=== PATIENT | female | born 1975 | race Caucasian/White ===

== ENCOUNTER 2018-12-02 13:16 | Emergency (ER) | payer SELFPAY ==
[~2018-12-02] VITALS: Ht 167.6 cm; Wt 70.3 kg
[2018-12-02 13:22] VITALS: BP 156/85
[2018-12-02] MEDS: HYDROcodone/APAP 5/325MG 1 TAB TABLET PO ONE (14:45)
--- NOTE | 2018-12-02 15:01 | PHYS DOC ---
Past Medical History Past Medical History: Diabetes-Type I Past Surgical History: Oophorectomy Additional Past Surgical Histo: D&C, R ARM SURGERY, RIGHT HEEL Alcohol Use: None Drug Use: Methamphetamine Social History Narrative: PT STATES HX METH POSSIBLE CURRENT Adult General Chief Complaint Chief Complaint: SKIN PROBLEM HPI HPI Patient is a 43 year old female who presents with multiple different stages of healing sores between the size of a nickel to quarter size that have appeared all over her body for the last month. Some have healed over and others are scabbed over. Patient states she's been opening them herself. Patient states she's not sure she's been getting bitten by spiders. Patient states she has feels nauseated every now and then but it comes and goes. Patient states she also feels like her throat is sore. Patient states she's been taking ibuprofen but has not taken any since last night. Patient is afebrile. Patient states they burn and itch she rates them a 10 out 10. Review of Systems Review of Systems Constitutional: Denies fever or chills [] Eyes: Denies change in visual acuity, redness, or eye pain [] HENT: Denies nasal congestion or sore throat [] Respiratory: Denies cough or shortness of breath [] Cardiovascular: No additional information not addressed in HPI [] GI: Denies abdominal pain, nausea, vomiting, bloody stools or diarrhea [] : Denies dysuria or hematuria [] Musculoskeletal: Denies back pain or joint pain [] Integument: Wounds all over the body. Denies rash or skin lesions [] Neurologic: Denies headache, focal weakness or sensory changes [] Endocrine: Denies polyuria or polydipsia [] All other systems were reviewed and found to be within normal limits, except as documented in this note. Current Medications Current Medications Current Medications Medications (Trade) Dose Ordered Sig/Manasa Start Time Stop Time Status Last Admin Dose Admin Acetaminophen/ Hydrocodone Bitart (Lortab 5/325) 1 tab 1X ONCE 12/02/18 14:30 12/02/18 14:31 DC 12/02/18 14:45 1 TAB Allergies Allergies Allergies Coded Allergies Type Severity Reaction Last Updated Verified No Known Drug Allergies 12/02/18 No Physical Exam Physical Exam Constitutional: Well developed, well nourished, no acute distress, non-toxic appearance. [] HENT: Normocephalic, atraumatic, bilateral external ears normal, oropharynx moist, no oral exudates, nose normal. [] Eyes: PERRLA, EOMI, conjunctiva normal, no discharge. [] Neck: Normal range of motion, no tenderness, supple, no stridor. [] Cardiovascular:Heart rate regular rhythm, no murmur [] Lungs & Thorax: Bilateral breath sounds clear to auscultation [] Abdomen: Bowel sounds normal, soft, no tenderness, no masses, no pulsatile masses. [] Skin: Multiple wounds all over body of different healing stages. Warm, dry, no erythema, no rash. [] Back: No tenderness, no CVA tenderness. [] Extremities: No tenderness, no cyanosis, no clubbing, ROM intact, no edema. [] Neurologic: Alert and oriented X 3, normal motor function, normal sensory function, no focal deficits noted. [] Psychologic: Affect normal, judgement normal, mood normal. [] Current Patient Data Vital Signs Vital Signs Date Time Temp Pulse Resp B/P (MAP) Pulse Ox O2 Delivery O2 Flow Rate FiO2 12/02/18 14:45 18 98 Room Air 12/02/18 13:22 98.4 96 156/85 (108) 98.4 EKG EKG [] Radiology/Procedures Radiology/Procedures [] Course & Med Decision Making Course & Med Decision Making Patient is a 43 year old female who presents with multiple different stages of healing sores between the size of a nickel to quarter size that have appeared all over her body for the last month. Some have healed over and others are sca bbed over. Patient states she's been opening them herself. Patient states she's not sure she's been getting bitten by spiders. Patient states she has feels nauseated every now and then but it comes and goes. Patient states she also feels like her throat is sore. Patient states she's been taking ibuprofen but has not taken any since last night. Patient is afebrile. Patient states they burn and itch she rates them a 10 out 10. Alert and oriented. Skin is pink warm and dry. Vital signs are within normal limits. Throat is red but is not swollen and there are no exudates. Her lungs are clear auscultation all lobes. There is no cellulitis associated with the wounds. The wounds look like opened abscesses that have been draining. Patient is scratching on the wounds continuously. Patient is given Bactrim and Keflex antibiotics. Patient to follow up with primary care or return to the ED if not getting better. [place] Disclaimer Dragon Disclaimer This electronic medical record was generated, in whole or in part, using a voice recognition dictation system. Departure Departure Impression: Primary Impression: Abscess Disposition: HOME, SELF-CARE Condition: STABLE Referrals: NO PCP (PCP) Patient Instructions: Abscess Additional Instructions: Follow up with primary care doctor or return to the ED if not getting better. Scripts Hydrocodone/Apap 5-325 (NORCO 5-325 TABLET) 1 Each Tablet 1 TAB PO PRN Q6HRS PRN for PAIN, #8 TAB 0 Refills Prov: DAWSON LR APRN 12/02/18 Cephalexin (KEFLEX) 500 Mg Capsule 1 CAP PO TID, #21 CAP Prov: DAWSON LR APRN 12/02/18 Sulfamethoxazole/Trimethoprim (BACTRIM DS TABLET) 1 Each Tablet 1 TAB PO BID, #14 TAB Prov: DAWSON LR APRN 12/02/18 DAWSON LR APRN Dec 02, 2018 15:01
[2018-12-02] MEDS ORDERED: HYDR-3164 PO (15:08)
[2018-12-02] MEDS ORDERED: SULF1TAB24 PO (15:08)
[2018-12-02] MEDS ORDERED: CEPH-264 PO (15:08)
== END 2018-12-02 15:43 | disposition home or self-care (01) ==
LOC: ER 13:16
DX: L02.818 Cutaneous abscess of other sites (principal); E10.9 Type 1 diabetes mellitus without complications
CPT/HCPCS: 87070; 87880; 99283